=== PATIENT | female | born 1965 | race Caucasian/White ===

== ENCOUNTER → 2019-09-14 | Outpatient (CLI) | payer BC | LOC: MAMMO 08:30 | PROVIDERS: ATTEND Internal Medicine | DX: Z12.31 Encounter for screening mammogram for malignant neoplasm of breast (principal) | CPT/HCPCS: 77067 ==

== ENCOUNTER 2020-12-21 19:22 | Emergency (ER) | payer BC ==
[~2020-12-21] VITALS: Ht 162.6 cm; Wt 83.9 kg
[2020-12-21 21:16] LABS: BASOPHILS % 0.6 % (0.0-1.0); EOSINOPHILS # (AUTO) 0.1 (0.0-0.4); EOSINOPHILS % 1.5 % (0.0-6.0); HEMATOCRIT 35.5 % (34.2-44.1); HEMOGLOBIN 11.6 g/dL (12.0-16.0); LYMPHOCYTES # (AUTO) 2.8 (1.0-3.2); LYMPHOCYTES % 43.1 % (18.0-39.1); MEAN CORPUSCULAR HEMOGLOBIN 33.5 pg (28-32); MEAN CORPUSCULAR HGB CONC 32.7 g/dL (31-35); MEAN CORPUSCULAR VOLUME 102.6 fL (81-99); MONOCYTES # (AUTO) 0.3 (0.2-0.8); MONOCYTES % 4.1 % (4.4-11.3); NEUTROPHILS # (AUTO) 3.3 (2.1-6.9); NEUTROPHILS % 50.5 % (38.7-80.0); PLATELET COUNT 333 x10e3/uL (140-360); RED BLOOD COUNT 3.46 x10e6/uL (3.6-5.1); RED CELL DISTRIBUTION WIDTH 14.8 % (11.7-14.4)
[2020-12-21] MEDS ORDERED: ONDANSETRON HCL INJ 2MG/ML 2ML 2 MG/ML VIAL IV STA (21:27)
[2020-12-21 21:30] LABS: ALANINE AMINOTRANSFERASE 9 IU/L (0-55); ALBUMIN 4.4 g/dL (3.5-5.0); ALBUMIN/GLOBULIN RATIO 1.3 (0.8-2.0); ALKALINE PHOSPHATASE 109 IU/L (40-150); ANION GAP 13.8 mmol/L (8-16); BLOOD UREA NITROGEN 14 mg/dL (7-26); BUN/CREATININE RATIO 16 (6-25); CALCIUM 9.7 mg/dL (8.4-10.2); CARBON DIOXIDE 27 mmol/L (22-29); CHLORIDE 103 mmol/L (98-107); CREATININE, SERUM 0.87 mg/dL (0.57-1.11); EST GLOMERULAR FILTRATION RATE > 60 ML/MIN (60-); GLUCOSE 101 mg/dL (74-118); POTASSIUM 3.8 mmol/L (3.5-5.1); SODIUM 140 mmol/L (136-145)
[2020-12-21] MEDS ORDERED: MORPHINE SULFATE INJ 4 MG/ML INJ 1ML IV PRN (21:30)
[2020-12-21] MEDS ORDERED: ONDANSETRON HCL INJ 2MG/ML 2ML 2 MG/ML VIAL ONE (21:38)
[2020-12-21] MEDS ORDERED: SODIUM CHLORIDE 0.9% 50ML 50 ML ONE (21:54)
[2020-12-21] MEDS ORDERED: IOPAMIDOL 370 MG/ML 200 ML INFUS..BTL INJ ONE (21:54)
[2020-12-21] MEDS ORDERED: CEPHALEXIN500 MG PO (23:08)
[2020-12-21] MEDS ORDERED: REGLAN10 MG PO (23:23)
[2020-12-21 23:24] VITALS: BP 146/93
[2020-12-22 04:45] LABS: CLARITY,URINE TURBID (CLEAR); COLOR,URINE AMBER (YELLOW)
[2020-12-22 04:46] LABS: AMPHETAMINES SCREEN,URINE NEGATIVE (NEGATIVE); BENZODIAZEPINES SCREEN,URINE NEGATIVE (NEGATIVE); KETONES,URINE NEGATIVE (NEGATIVE); LEUKOCYTE ESTERASE ,URINE TRACE (NEGATIVE); NITRITE,URINE POSITIVE (NEGATIVE); PHENCYCLIDINE SCREEN,URINE NEGATIVE (NEGATIVE); PROTEIN,URINE DIPSTICK TRACE (NEGATIVE)
[2020-12-22 04:47] LABS: BACTERIA,URINE MANY /HPF; EPITHELIAL CELLS,URINE MODERATE /LPF; RBC,URINE >50 /HPF (0-5); URINE UROBILINOGEN 0.2 mg/dL (0.2 - 1); WBC,URINE (MAN) >50 /HPF (0-5)
== END 2020-12-21 23:37 | disposition home or self-care (01) ==
LOC: ER 20:11
DX: R30.0 Dysuria (principal); M54.5 Low back pain; N39.0 Urinary tract infection, site not specified; F32.9 Major depressive disorder, single episode, unspecified
CPT/HCPCS: 36415; 74177; 80053; 80307; 81001; 85025; 99284; J2270; J2405; Q9967

== ENCOUNTER 2021-01-07 20:46 | Inpatient (IN) | payer BC ==
[~2021-01-07] VITALS: Ht 162.6 cm; Wt 83.9 kg
[~2021-01-07 20:46] MED LIST: CEPHALEXIN500 MG PO; REGLAN10 MG PO
[2021-01-07] MEDS ORDERED: SODIUM CHLORIDE 0.9% 1000ML 1,000 ML IV ONE (21:00)
[2021-01-07] MEDS ORDERED: ACETAMINOPHEN 325 MG TAB PO ONE (21:00)
[2021-01-07] MEDS ORDERED: CEFTRIAXONE 1 GM VIAL IV ONE (21:00)
[2021-01-07 21:06] LABS: BASOPHILS % 0.3 % (0.0-1.0); EOSINOPHILS # (AUTO) 0.1 (0.0-0.4); EOSINOPHILS % 0.9 % (0.0-6.0); HEMATOCRIT 27.6 % (34.2-44.1); HEMOGLOBIN 8.8 g/dL (12.0-16.0); LYMPHOCYTES # (AUTO) 0.7 (1.0-3.2); MEAN CORPUSCULAR HEMOGLOBIN 33.5 pg (28-32); MEAN CORPUSCULAR HGB CONC 31.9 g/dL (31-35); MEAN CORPUSCULAR VOLUME 104.9 fL (81-99); MONOCYTES # (AUTO) 0.2 (0.2-0.8); MONOCYTES % 3.5 % (4.4-11.3); NEUTROPHILS # (AUTO) 5.6 (2.1-6.9); NEUTROPHILS % 85.1 % (38.7-80.0); PLATELET COUNT 172 x10e3/uL (140-360); RED BLOOD COUNT 2.63 x10e6/uL (3.6-5.1); RED CELL DISTRIBUTION WIDTH 15.4 % (11.7-14.4)
[2021-01-07] MEDS ORDERED: DIPHENHYDRAMINE HCL INJ 50 MG/ML VIAL ONE (21:12)
[2021-01-07] MEDS ORDERED: DIPHENHYDRAMINE HCL INJ 50 MG/ML VIAL IV ONE (21:15)
[2021-01-07] MEDS ORDERED: CEFTRIAXONE 1 GM in SODIUM CHLORIDE 0.9% 50ML 50 ML IV ONE (21:15)
[2021-01-07 21:22] LABS: ALANINE AMINOTRANSFERASE 15 IU/L (0-55); ALBUMIN 3.8 g/dL (3.5-5.0); ALBUMIN/GLOBULIN RATIO 1.5 (0.8-2.0); ALKALINE PHOSPHATASE 88 IU/L (40-150); ANION GAP 13.5 mmol/L (8-16); BLOOD UREA NITROGEN 15 mg/dL (7-26); BUN/CREATININE RATIO 18 (6-25); CALCIUM 8.8 mg/dL (8.4-10.2); CARBON DIOXIDE 23 mmol/L (22-29); CHLORIDE 107 mmol/L (98-107); CREATINE KINASE 107 IU/L (29-168); CREATININE, SERUM 0.84 mg/dL (0.57-1.11); EST GLOMERULAR FILTRATION RATE > 60 ML/MIN (60-); GLUCOSE 96 mg/dL (74-118); POTASSIUM 3.5 mmol/L (3.5-5.1); SODIUM 140 mmol/L (136-145)
[2021-01-07 21:23] LABS: AMYLASE 35 U/L (25-125); LIPASE 8 U/L (8-78)
[2021-01-07] MEDS ORDERED: SODIUM CHLORIDE 0.9% 50ML 50 ML ONE (21:48)
[2021-01-07] MEDS ORDERED: IOPAMIDOL 370 MG/ML 200 ML INFUS..BTL INJ ONE (21:49)
[2021-01-07 23:50] LABS: CLARITY,URINE CLEAR (CLEAR); COLOR,URINE YELLOW (YELLOW); KETONES,URINE 1+ (NEGATIVE); LEUKOCYTE ESTERASE ,URINE NEGATIVE (NEGATIVE); NITRITE,URINE NEGATIVE (NEGATIVE); PROTEIN,URINE DIPSTICK NEGATIVE (NEGATIVE)
[2021-01-07 23:51] LABS: AMPHETAMINES SCREEN,URINE NEGATIVE (NEGATIVE); BENZODIAZEPINES SCREEN,URINE NEGATIVE (NEGATIVE); PHENCYCLIDINE SCREEN,URINE NEGATIVE (NEGATIVE); URINE UROBILINOGEN 0.2 mg/dL (0.2 - 1)
[2021-01-07 23:53] LABS: BACTERIA,URINE RARE /HPF; EPITHELIAL CELLS,URINE FEW /LPF
[2021-01-08] VITALS (7 sets, daily range): BP systolic 93–126; BP diastolic 54–80
[2021-01-08] MEDS ORDERED: CEFTRIAXONE 1 GM VIAL IV SCH (00:30)
[2021-01-08] MEDS ORDERED: GABAPENTIN300 MG PO (02:25)
[2021-01-08] MEDS ORDERED: VOLTAREN-XR100 MG PO (02:25)
[2021-01-08] MEDS ORDERED: HYDROCODON-ACE1 EAC9 (02:25)
[2021-01-08] MEDS: SODIUM CHLORIDE 0.9% 1000ML 1,000 ML IV SCH ×3 (02:46→16:57)
[2021-01-08] MEDS: ACETAMINOPHEN 325 MG TAB PO PRN ×4 (02:46→23:17)
[2021-01-08] MEDS: HYDROCODONE/APAP 5MG-325MG TAB PO PRN ×2 (06:56→14:07)
[2021-01-08] MEDS ORDERED: HYDRALAZINE HCL 20 MG/ML VIAL IV PRN (09:45)
[2021-01-08] MEDS ORDERED: POLYETHYLENE GLYCOL 3350 17 GM PACK PO PRN (09:45)
[2021-01-08] MEDS: ONDANSETRON HCL INJ 2MG/ML 2ML 2 MG/ML VIAL IV PRN (14:11)
[2021-01-08] MEDS: DOCUSATE SODIUM 100 MG CAP PO SCH (16:57)
[2021-01-08] MEDS: FAMOTIDINE 20 MG TAB PO SCH (16:57)
[2021-01-08] MEDS ORDERED: METOCLOPRAMIDE HCL 10 MG TAB PO PRN (18:15)
[2021-01-08] MEDS ORDERED: MORPHINE SULFATE INJ 2 MG/ML SYR IV PRN (18:15)
[2021-01-08] MEDS: HYDROCODONE/APAP 10MG-325MG TAB PO PRN (20:22)
[2021-01-08] MEDS: GABAPENTIN 300 MG CAP PO SCH (20:22)
[2021-01-08] MEDS: CEFTRIAXONE 1 GM in SODIUM CHLORIDE 0.9% 50ML 50 ML IV SCH (21:13)
[2021-01-08] MEDS: TEMAZEPAM 15 MG CAP PO PRN (23:16)
[2021-01-09] VITALS (8 sets, daily range): BP systolic 115–136; BP diastolic 63–80
[2021-01-09] MEDS: SODIUM CHLORIDE 0.9% 1000ML 1,000 ML IV SCH ×2 (01:51→08:48)
[2021-01-09 04:24] LABS: BASOPHILS % 0.5 % (0.0-1.0); EOSINOPHILS # (AUTO) 0.1 (0.0-0.4); EOSINOPHILS % 1.3 % (0.0-6.0); HEMATOCRIT 29.6 % (34.2-44.1); HEMOGLOBIN 9.4 g/dL (12.0-16.0); LYMPHOCYTES # (AUTO) 0.9 (1.0-3.2); LYMPHOCYTES % 22.6 % (18.0-39.1); MEAN CORPUSCULAR HEMOGLOBIN 33.8 pg (28-32); MEAN CORPUSCULAR HGB CONC 31.8 g/dL (31-35); MEAN CORPUSCULAR VOLUME 106.5 fL (81-99); MONOCYTES # (AUTO) 0.1 (0.2-0.8); MONOCYTES % 3.5 % (4.4-11.3); NEUTROPHILS # (AUTO) 2.9 (2.1-6.9); NEUTROPHILS % 71.6 % (38.7-80.0); PLATELET COUNT 132 x10e3/uL (140-360); RED BLOOD COUNT 2.78 x10e6/uL (3.6-5.1); RED CELL DISTRIBUTION WIDTH 15.1 % (11.7-14.4)
[2021-01-09 04:41] LABS: ALANINE AMINOTRANSFERASE 15 IU/L (0-55); ALBUMIN 3.3 g/dL (3.5-5.0); ALBUMIN/GLOBULIN RATIO 1.1 (0.8-2.0); ALKALINE PHOSPHATASE 80 IU/L (40-150); ANION GAP 15.3 mmol/L (8-16); BLOOD UREA NITROGEN 8 mg/dL (7-26); BUN/CREATININE RATIO 11 (6-25); CALCIUM 8.4 mg/dL (8.4-10.2); CARBON DIOXIDE 16 mmol/L (22-29); CHLORIDE 109 mmol/L (98-107); CREATININE, SERUM 0.71 mg/dL (0.57-1.11); EST GLOMERULAR FILTRATION RATE > 60 ML/MIN (60-); GLUCOSE 92 mg/dL (74-118); POTASSIUM 4.3 mmol/L (3.5-5.1); SODIUM 136 mmol/L (136-145)
[2021-01-09 04:53] LABS: CHOL/HDL RATIO 2.9 (3.0-3.6); PHOSPHORUS 3.1 MG/DL (2.3-4.7)
[2021-01-09 05:13] LABS: THYROID STIMULATING HORMONE 0.183 uIU/mL (0.350-4.940)
[2021-01-09] MEDS: HYDROCODONE/APAP 10MG-325MG TAB PO PRN ×3 (05:13→19:14)
[2021-01-09] MEDS: DOCUSATE SODIUM 100 MG CAP PO SCH ×2 (08:45→16:48)
[2021-01-09] MEDS: FAMOTIDINE 20 MG TAB PO SCH ×2 (08:45→16:48)
[2021-01-09] MEDS: DICLOFENAC SOD 50 MG TAB PO SCH (08:45)
[2021-01-09] MEDS: GABAPENTIN 300 MG CAP PO SCH ×3 (08:45→22:07)
[2021-01-09] MEDS: CEFTRIAXONE 1 GM in SODIUM CHLORIDE 0.9% 50ML 50 ML IV SCH (22:07)
[2021-01-10] VITALS: BP 118/81
[2021-01-10] MEDS: HYDROCODONE/APAP 10MG-325MG TAB PO PRN ×3 (04:28→18:17)
[2021-01-10 04:35] VITALS: BP 143/84
[2021-01-10 05:37] LABS: BASOPHILS % 1.2 % (0.0-1.0); EOSINOPHILS # (AUTO) 0.1 (0.0-0.4); EOSINOPHILS % 5.5 % (0.0-6.0); HEMATOCRIT 26.2 % (34.2-44.1); HEMOGLOBIN 8.5 g/dL (12.0-16.0); LYMPHOCYTES # (AUTO) 1.1 (1.0-3.2); LYMPHOCYTES % 41.4 % (18.0-39.1); MEAN CORPUSCULAR HEMOGLOBIN 33.9 pg (28-32); MEAN CORPUSCULAR HGB CONC 32.4 g/dL (31-35); MEAN CORPUSCULAR VOLUME 104.4 fL (81-99); MONOCYTES # (AUTO) 0.2 (0.2-0.8); MONOCYTES % 6.3 % (4.4-11.3); NEUTROPHILS # (AUTO) 1.2 (2.1-6.9); NEUTROPHILS % 45.6 % (38.7-80.0); PLATELET COUNT 153 x10e3/uL (140-360); RED BLOOD COUNT 2.51 x10e6/uL (3.6-5.1); RETICULOCYTE % 1.1 % (0.8-2.2)
[2021-01-10 06:42] LABS: FERRITIN 167.87 ng/mL (4.63-204.00)
[2021-01-10 06:50] LABS: ANISOCYTOSIS SLIGHT; EOSINOPHILS % (MANUAL) 6 % (0-7); LYMPHOCYTES % (MANUAL) 42 % (19-48); MONOCYTES % (MANUAL) 7 % (3.4-9.0); NEUTROPHILS % (MANUAL) 45 % (40-74); PLATELET ESTIMATE ADEQUATE; PLATELET MORPHOLOGY COMMENT NORMAL
[2021-01-10 06:51] LABS: OVALOCYTES FEW; RBC MORPHOLOGY COMMENT ABNORMAL
[2021-01-10 08:55] VITALS: BP 121/81
[2021-01-10] MEDS: FAMOTIDINE 20 MG TAB PO SCH ×2 (09:08→17:02)
[2021-01-10] MEDS: DICLOFENAC SOD 50 MG TAB PO SCH (09:08)
[2021-01-10] MEDS: GABAPENTIN 300 MG CAP PO SCH ×3 (09:08→21:00)
[2021-01-10] MEDS: DOCUSATE SODIUM 100 MG CAP PO SCH ×2 (09:08→17:02)
[2021-01-10 12:24] VITALS: BP 128/81
[2021-01-10 16:44] VITALS: BP 117/86
[2021-01-10] MEDS: CEFTRIAXONE 1 GM in SODIUM CHLORIDE 0.9% 50ML 50 ML IV SCH (17:03)
[2021-01-10 20:28] VITALS: BP 118/62
[2021-01-10] MEDS: TEMAZEPAM 15 MG CAP PO PRN (21:54)
[2021-01-11 00:08] VITALS: BP 124/79
[2021-01-11 04:33] VITALS: BP 124/79
[2021-01-11 04:48] VITALS: BP 127/93
[2021-01-11 06:02] LABS: BASOPHILS % 0.3 % (0.0-1.0); EOSINOPHILS # (AUTO) 0.1 (0.0-0.4); EOSINOPHILS % 3.3 % (0.0-6.0); HEMATOCRIT 26.9 % (34.2-44.1); HEMOGLOBIN 8.8 g/dL (12.0-16.0); LYMPHOCYTES % 32.2 % (18.0-39.1); MEAN CORPUSCULAR HEMOGLOBIN 33.7 pg (28-32); MEAN CORPUSCULAR HGB CONC 32.7 g/dL (31-35); MEAN CORPUSCULAR VOLUME 103.1 fL (81-99); MONOCYTES # (AUTO) 0.2 (0.2-0.8); NEUTROPHILS # (AUTO) 1.8 (2.1-6.9); NEUTROPHILS % 58.2 % (38.7-80.0); PLATELET COUNT 164 x10e3/uL (140-360); RED BLOOD COUNT 2.61 x10e6/uL (3.6-5.1); RED CELL DISTRIBUTION WIDTH 14.7 % (11.7-14.4)
[2021-01-11] MEDS: FAMOTIDINE 20 MG TAB PO SCH (08:17)
[2021-01-11] MEDS: DOCUSATE SODIUM 100 MG CAP PO SCH (08:17)
[2021-01-11] MEDS: GABAPENTIN 300 MG CAP PO SCH (08:18)
[2021-01-11] MEDS: HYDROCODONE/APAP 10MG-325MG TAB PO PRN (08:18)
[2021-01-11] MEDS: DICLOFENAC SOD 50 MG TAB PO SCH (08:18)
[2021-01-11 08:30] VITALS: BP 129/72
[2021-01-11 08:37] VITALS: BP 129/72
[2021-01-11] MEDS: ONDANSETRON HCL INJ 2MG/ML 2ML 2 MG/ML VIAL IV PRN (10:09)
[2021-01-11 12:19] VITALS: BP 134/84
== END 2021-01-11 13:35 | disposition home or self-care (01) | DRG 871 ==
LOC: ER 20:49 → ERHOLD 01-08 01:16 → MED/SURG2 01-08 01:21 → OBSVTOIN 01-08 10:30
PROVIDERS: ADMIT Internal Medicine; ATTEND Internal Medicine
DX: A41.9 Sepsis, unspecified organism (principal); G93.41 Metabolic encephalopathy; N10 Acute pyelonephritis; J90 Pleural effusion, not elsewhere classified; R65.20 Severe sepsis without septic shock; D64.9 Anemia, unspecified; E66.9 Obesity, unspecified; F32.9 Major depressive disorder, single episode, unspecified; D63.8 Anemia in other chronic diseases classified elsewhere; Z68.31 Body mass index [BMI] 31.0-31.9, adult; Z87.440 Personal history of urinary (tract) infections; S82.891D Other fracture of right lower leg, subsequent encounter for closed fracture with routine healing; Z82.49 Family history of ischemic heart disease and other diseases of the circulatory system; Z82.5 Family history of asthma and other chronic lower respiratory diseases; Z84.89 Family history of other specified conditions; Z82.3 Family history of stroke; Z88.6 Allergy status to analgesic agent; Z87.891 Personal history of nicotine dependence; Z88.8 Allergy status to other drugs, medicaments and biological substances; Z20.822 Contact with and (suspected) exposure to COVID-19
CPT/HCPCS: 36415; 70450; 71045; 74177; 80053; 80061; 80307; 81001; 82150; 82550; 82553; 82607; 82728; 82746; 83036; 83540; 83605; 83690; 83735; 84100; 84443; 84466; 84484; 85025; 85045; 87040; 87086; 93005; 99284; J0696; J1200; J2270; J2405; J7030; Q9967; U0002

== ENCOUNTER 2021-02-18 17:16 | Emergency (ER) | payer BC ==
[~2021-02-18] VITALS: Ht 162.6 cm; Wt 83.9 kg
[~2021-02-18 17:16] MED LIST changes: +GABAPENTIN300 MG PO; +HYDROCODON-ACE1 EAC9; +VOLTAREN-XR100 MG PO
[2021-02-18 18:48] LABS: BASOPHILS % 0.6 % (0.0-1.0); EOSINOPHILS # (AUTO) 0.2 (0.0-0.4); EOSINOPHILS % 3.3 % (0.0-6.0); HEMATOCRIT 31.5 % (34.2-44.1); LYMPHOCYTES # (AUTO) 2.2 (1.0-3.2); LYMPHOCYTES % 45.3 % (18.0-39.1); MEAN CORPUSCULAR HEMOGLOBIN 33.3 pg (28-32); MEAN CORPUSCULAR HGB CONC 31.7 g/dL (31-35); MONOCYTES # (AUTO) 0.2 (0.2-0.8); MONOCYTES % 4.6 % (4.4-11.3); NEUTROPHILS # (AUTO) 2.2 (2.1-6.9); PLATELET COUNT 281 x10e3/uL (140-360)
[2021-02-18 18:51] LABS: CLARITY,URINE SL CLOUDY (CLEAR); COLOR,URINE AMBER (YELLOW); KETONES,URINE NEGATIVE (NEGATIVE); LEUKOCYTE ESTERASE ,URINE NEGATIVE (NEGATIVE); NITRITE,URINE NEGATIVE (NEGATIVE); PROTEIN,URINE DIPSTICK NEGATIVE (NEGATIVE); URINE UROBILINOGEN 0.2 mg/dL (0.2 - 1)
[2021-02-18 19:03] LABS: AMORPHOUS SEDIMENT,URINE MODERATE (FEW); BACTERIA,URINE MANY /HPF; EPITHELIAL CELLS,URINE FEW /LPF
[2021-02-18 19:05] LABS: ALBUMIN/GLOBULIN RATIO 1.3 (0.8-2.0); ANION GAP 13.2 mmol/L (8-16); CALCIUM 9.7 mg/dL (8.4-10.2); CREATININE, SERUM 0.78 mg/dL (0.57-1.11); POTASSIUM 4.2 mmol/L (3.5-5.1)
[2021-02-18] MEDS ORDERED: FOSFOMYCIN TROME3 GM PO (19:30)
== END 2021-02-18 19:45 | disposition home or self-care (01) ==
LOC: ER 18:00
DX: R30.0 Dysuria (principal); N39.0 Urinary tract infection, site not specified; F32.9 Major depressive disorder, single episode, unspecified
CPT/HCPCS: 36415; 80053; 81001; 85025; 87086

== ENCOUNTER 2021-05-10 13:23 | Emergency (ER) | payer BC ==
[~2021-05-10 13:23] MED LIST changes: +FOSFOMYCIN TROME3 GM PO
[2021-05-10] MEDS ORDERED: ONDANSETRON HCL INJ 2MG/ML 2ML 2 MG/ML VIAL IV NR (13:39)
[2021-05-10] MEDS ORDERED: KETOROLAC TROMETHAMINE 30 MG/ML VIAL IV NR (13:39)
[2021-05-10] MEDS ORDERED: SODIUM CHLORIDE 0.9% 1000ML 1,000 ML IV SCH (13:45)
[2021-05-10 14:27] LABS: BASOPHILS % 0.7 % (0.0-1.0); EOSINOPHILS # (AUTO) 0.2 (0.0-0.4); EOSINOPHILS % 3.2 % (0.0-6.0); HEMATOCRIT 33.7 % (34.2-44.1); HEMOGLOBIN 10.7 g/dL (12.0-16.0); LYMPHOCYTES # (AUTO) 2.1 (1.0-3.2); MEAN CORPUSCULAR HEMOGLOBIN 33.3 pg (28-32); MEAN CORPUSCULAR HGB CONC 31.8 g/dL (31-35); MONOCYTES # (AUTO) 0.2 (0.2-0.8); MONOCYTES % 3.9 % (4.4-11.3); NEUTROPHILS # (AUTO) 2.9 (2.1-6.9); PLATELET COUNT 290 x10e3/uL (140-360); RED BLOOD COUNT 3.21 x10e6/uL (3.6-5.1); RED CELL DISTRIBUTION WIDTH 14.1 % (11.7-14.4)
[2021-05-10 14:41] LABS: ALBUMIN/GLOBULIN RATIO 1.3 (0.8-2.0); CALCIUM 9.7 mg/dL (8.4-10.2); CREATININE, SERUM 0.83 mg/dL (0.57-1.11)
[2021-05-10] MEDS ORDERED: IOPAMIDOL 370 MG/ML 200 ML INFUS..BTL INJ ONE (15:02)
[2021-05-10] MEDS ORDERED: SODIUM CHLORIDE 0.9% 50ML 50 ML ONE (15:02)
[2021-05-10 16:11] LABS: CLARITY,URINE SL CLOUDY (CLEAR); COLOR,URINE YELLOW (YELLOW); KETONES,URINE NEGATIVE (NEGATIVE); LEUKOCYTE ESTERASE ,URINE SMALL (NEGATIVE); NITRITE,URINE POSITIVE (NEGATIVE); PROTEIN,URINE DIPSTICK TRACE (NEGATIVE); URINE UROBILINOGEN 0.2 mg/dL (0.2 - 1)
[2021-05-10 16:30] LABS: BACTERIA,URINE MANY /HPF; EPITHELIAL CELLS,URINE MANY /LPF; RBC,URINE 21-50 /HPF (0-5); WBC,URINE (MAN) >50 /HPF (0-5)
[2021-05-10] MEDS ORDERED: CEFTRIAXONE 500 MG VIAL INJ ONE (16:30)
[2021-05-10] MEDS ORDERED: CEPHALEXIN500 MG PO (16:32)
[2021-05-10 16:50] VITALS: BP 103/72
== END 2021-05-10 17:06 | disposition home or self-care (01) ==
LOC: ER 13:48
DX: N12 Tubulo-interstitial nephritis, not specified as acute or chronic (principal); N20.0 Calculus of kidney; R10.31 Right lower quadrant pain; M54.50 Low back pain, unspecified
CPT/HCPCS: 36415; 74177; 80053; 81001; 85025; 99284; J1885; J7030; Q9967